=== PATIENT | male | born 1935 | race Caucasian/White ===

== ENCOUNTER 2019-07-05 16:04 | Emergency (ER) | payer OTHER ==
[2019-07-05 16:18] LABS: ABSOLUTE NEUTROPHIL COUNT 24.28; BASO % 0.1 % (0-6); HEMATOCRIT 43.1 % (42.0-52.0); HEMOGLOBIN 13.6 gm/dl (14.0-18.0); LYMPH % 4.7 % (16-45); MEAN CORPUSCULAR HGB CONC 31.6 g/dl (32-36); MEAN PLATELET VOLUME 9.7 fl (7.4-10.4); MONO % 9.4 % (0-9); PLATELET COUNT 561 K/uL (130-400); RED BLOOD COUNT 4.84 M/uL (4.40-5.70); RED CELL DISTRIBUTION WIDTH 15.4 % (11.5-14.5)
--- NOTE | 2019-07-05 16:22 | Emergency Department Record ---
History of Present Illness - General Chief Complaint: Fall Injury Stated Complaint: FELL 10-12 FT ON HEAD Time Seen by Provider: 07/05/19 16:07 Source: Patient, Family Mode of Arrival: Stretcher Limitations: Altered mental status - History of Present Illness Initial Comments: The patient is here after being brought here by his son in the front seat of the car after falling 10-12 feet off a ladder onto his head. The son feels the patient may have been lying outside on the concrete for up to 3 hours. Presently the patient has blood all over his head and was moved from the car onto a stretcher with a C-collar in place. He is awake and only complaining of head and neck pain. There has been no reported vomiting or any CP or SOB. The patient has no significant medical issues and may only take an ASA daily. He does not smoke and has not seen a doctor in years. MD Complaint: Fall Onset/Timin -: Hour(s) - Related Data Allergies Allergy/AdvReac Type Severity Reaction Status Date / Time No Known Drug Allergies Allergy Verified 07/05/19 17:15 Review of Systems Constitutional: Denies: Chills, Fever Eyes: Denies: Eye discharge ENT: Denies: Congestion Respiratory: Denies: Cough, Dyspnea Cardiovascular: Denies: Arrhythmia Endocrine: Denies: Fatigue Gastrointestinal: Denies: Nausea Genitourinary: Denies: Dysuria Musculoskeletal: Denies: Arthralgia Skin: Reports: Bruising Neurological: Reports: Headache Past Medical History - SOCIAL HISTORY Smoking Status: Never smoker - RESPIRATORY Hx Respiratory Disorders: No Hx COPD: No - CARDIOVASCULAR Hx Cardio Disorders: No Physical Exam - General General Appearance: Alert, Cooperative, No acute distress, Mild distress - Head Head exam: negative: Atraumatic, Normocephalic, Normal inspection (There is a 3 cm lac to the R forehead area with significant swelling and edema. The R eye is closed shut. The L eye is reactive.) Head exam detail: Hematoma (R eye.), [place] eyes (R eye only.) - Eye Eye exam: PERRL (L only.), Periorbital swelling (R only.), Periorbital tenderness. negative: Normal appearance - ENT ENT exam: negative: Normal exam - Neck Neck exam: Tenderness. negative: Normal inspection - Respiratory Respiratory exam: Normal lung sounds bilaterally. negative: Chest wall tenderness, Respiratory distress - Cardiovascular Cardiovascular Exam: Regular rate, Normal rhythm, Normal heart sounds - GI/Abdominal GI/Abdominal exam: Soft, Normal bowel sounds. negative: Tenderness - Extremities Extremities exam: Normal inspection, Full ROM, Normal capillary refill. negative: Tenderness - Back Back exam: Reports: Normal inspection. Denies: Vertebral tenderness - Neurological Neurological exam: Abnormal gait, Alert (The patient is speaking spontaneously and answering questions. ), Motor sensory deficit (There does appear to be decreased strength to the R arm and hand > L arm and hand. His strength is 4/5 L>R. The patient is moving his legs better and spontaneously. He will wiggle his toes to commands.). negative: Normal gait - Skin Skin exam: negative: Rash Course - Reevaluation(s) Reevaluation #1: I did discuss the issues with the family and did discuss the need to transfer to Trauma. Procedure note: The R head lacs totalling 12 cms were cleansed, anesth. with 3 cc's Lido 1% with Epi. The wounds were closed with a total of 11 3.0 Prolene sutures. There were no complications. The inferior lac was very macerated and stellate and the posterior 4 cm's were not able to close. 07/05/19 17:22 Reevaluation #2: Due to the extent of the patient's injuries I did discuss the case with Dr. Chambers at [facility] who did recommend transfer to [facility] ED. I then did discuss the case with Dr.'s Cooper and Jamison in the ER and Trauma and the patient was accepted in transfer. 07/05/19 17:35 Medical Decision Making - Data Complexity MDM Data: Labs Ordered and/or Reviewed, X-Ray Ordered and/or Reviewed - Lab Data Result diagrams: 07/05/19 16:10 07/05/19 16:10 - Radiology Data Radiology results: Report reviewed (Head CT: Anterior R Temp Epidural Hem 10 mm depth. L post parietal intraparenchymal hemorrhage. Mult skull fx's. Cspine: Fx's of C7, T-1, and T-2. Neg cord impingement. Neg displaced fx's. Chest and Abd CT: R scapula fx and distal L radius fx.) Disposition Disposition: Transfer Clinical Impression: Epidural hemorrhage Qualifiers: Encounter type: initial encounter Loss of consciousness presence/duration: with LOC of 30 min or less Qualified Code(s): S06.4X1A - Epidural hemorrhage with loss of consciousness of 30 minutes or less, initial encounter Disposition: Acute Care Hospital Transfer Transfer To: [facility] ER Reason For Transfer: Trauma and Neurosurg. Accepting Physician: Allison Time Discussed w/Accepting Physician: 17:37 Condition: (2) Stable Forms: Patient Portal Access Time of Disposition: 17:37 Quality - Quality Measures Quality Measures: Blunt Head Trauma (>2yr) - Blunt Head Trauma - Adult Quality Measure: Measure #415: Utilization of CT for Minor Blunt Head Trauma ICD10 Codes Entered: Yes View Details: Yes Was CT ordered: Yes Does Patient Have Any of the Following: Taking Antiplatelet Med Morganza Score: Please complete Forrest Coma Scale above Utilization of CT for Minor Blunt Head Trauma: Patient Excluded [G9531] - Blood Pressure Screening View Details: Yes Does Patient Have Any of the Following: No Blood Pressure Classification: Hypertensive Reading Systolic Measurement: 184 Diastolic Measurement: 98 Screening for High Blood Pressure: < First Hypertensive BP, F/U Documented > [G8950] First Hypertensive Follow-up Interventions: Referral to alternative/primary care provider.
[2019-07-05 16:28] LABS: WHITE BLOOD COUNT W/O DIFF 28.3 K/uL (4.2-12.2)
[2019-07-05 16:30] LABS: BLOOD UREA NITROGEN 16 mg/dL (8-23); CREATININE 0.9 mg/dL (0.7-1.2); EST GLOMERULAR FILTRATION RATE > 60 mL/min
[2019-07-05] MEDS ORDERED: LIDOCAINE UROJECT 10 ML APPL MM ONE (16:32)
[2019-07-05 16:33] LABS: GLUCOSE,RANDOM 269 mg/dL (74-109)
[2019-07-05 16:36] LABS: CREATINE PHOSPHOKINASE 425 U/L (39-308)
[2019-07-05 16:49] LABS: URINE APPEARANCE CLOUDY; URINE BILIRUBIN NEGATIVE (NEGATIVE); URINE BLOOD MODERATE (NEGATIVE); URINE COLOR YELLOW; URINE KETONE NEGATIVE (NEGATIVE); URINE LEUKOCYTE ESTERASE SMALL (NEGATIVE); URINE NITRITE NEGATIVE (NEGATIVE); URINE PROTEIN TRACE (NEGATIVE); URINE UROBILINOGEN 0.2 E.U./dL (0.20 - 1.00)
[2019-07-05 16:50] LABS: ANISOCYTOSIS 1+; PLATELET ESTIMATE INCREASED (NORMAL)
[2019-07-05 16:52] LABS: BARBITURATE SCREEN URINE NOT DETECTED; BENZODIAZEPINE SCREEN URINE NOT DETECTED; METHADONE SCREEN URINE NOT DETECTED; TRICYCLIC ANTIDEPRESSANT SCRN NOT DETECTED
[2019-07-05 16:53] LABS: AMPHETAMINE SCREEN URINE NOT DETECTED; COCAINE SCREEN URINE NOT DETECTED; METHAMPHETAMINE SCREEN NOT DETECTED; OPIATE SCREEN URINE NOT DETECTED; OXYCODONE SCREEN URINE NOT DETECTED; PHENCYCLIDINE SCREEN URINE NOT DETECTED; PROPOXYPHENE SCREEN URINE NOT DETECTED; THC SCREEN URINE NOT DETECTED
[2019-07-05 17:01] LABS: URINE BACTERIA 4+
[2019-07-05] MEDS ORDERED: Diph,Pert(Acell),Tet Vac 0.5 ML SYR IM ONE (17:06)
[2019-07-05] MEDS ORDERED: CEFTRIAXONE 1GM/50ML BAG 1 GM/50 ML BAG IVPB ONE (17:12)
[2019-07-05 17:13] LABS: ABO GROUP A; ANTIBODY SCREEN NEGATIVE (NEGATIVE); INR 1.2; PARTIAL THROMBOPLASTIN TIME 29.8 SECONDS (24.5-39.1); PROTHROMBIN TIME (PATIENT) 12.2 SECONDS (9.5-12.1); RH TYPE POSITIVE
--- NOTE | 2019-07-05 17:30 | CT SCAN REPORT ---
EXAMINATION: CHEST/ABD/PEL WO CONTRAST EXAM DATE: 07/05/2019 4:44 PM TECHNIQUE: Routine CT images of the chest, abdomen, and pelvis were obtained without contrast. INDICATION: trauma COMPARISON: None ENCOUNTER: Initial FINDINGS: CT Chest: The heart is not enlarged. No pericardial effusion. There is mild ectasia of the ascending aorta venancio uring 4.3 x 4.3 cm at the level of the right main pulmonary artery. Mild aortic atherosclerosis. No m ediastinal or hilar lymph node enlargement. There is fluid within the esophagus probably reflecting g astroesophageal reflux. Lungs demonstrate mild bibasilar atelectasis. No focal consolidation, pleural effusion, or pneumothor ax. Chest wall soft tissues are unremarkable. There appears be an acute fracture involving the inferior r ight scapula. There appears be an old sternal fracture bilateral rib fractures. Left mid clavicular f racture appears to be chronic though correlate with point tenderness. There are numerous bridging ost eophytes within the cervical and thoracic spine. There is a lucency through a bridging osteophyte and extending into the anteroinferior C7 vertebral body on the left suspicious for an acute fracture. CT abdomen and pelvis: Suggestion of cholelithiasis. Liver, pancreas, granulomatous spleen, and adrenals are unremarkable. R ight kidney is unremarkable. There is an exophytic fluid attenuation cyst lower pole left kidney venancio uring approximately 5 cm. There is colonic diverticulosis without CT evidence for diverticulitis. Appendix is a normal noncontr ast appearance. The bladder is distended. There is marked enlargement of the prostate gland measuring approximately 9.9 x 9.6 x 9.4 cm. There is mild aortic atherosclerosis. No abdominal or pelvic lymphadenopathy. Small fat-containing le ft inguinal hernia. No acute osseous abnormality is seen. There are moderate scattered degenerative changes. Other: There appears to be a intra-articular left distal radial fracture. IMPRESSION: 1. There appear to be acute fractures involving the inferior right scapula and distal left radius. T here is a lucency within the anteroinferior aspect of the left C7 vertebral body where there is a pro minent bridging osteophyte. This could relate to an acute fracture as well. Chronic appearing left mi d clavicular fracture though correlate with point tenderness. Other chronic fractures are present els ewhere including the sternum and multiple bilateral ribs. 2. Mild ectasia of the ascending aorta. 3. Marked enlargement of the prostate gland measuring 9.9 x 9.6 x 9.4 cm. This causes a bladder outle t obstruction. 4. Cholelithiasis. 5. Diverticulosis. 6. Probable gastroesophageal reflux. 7. Sizable fluid attenuation cyst lower pole left kidney. 8. Other chronic findings as above. Dictated by: Ji Colby MD on 07/05/2019 5:05 PM. .
--- NOTE | 2019-07-05 17:36 | CT SCAN REPORT ---
EXAMINATION: CT of the head without contrast, CT of the cervical spine contrast EXAM DATE: 07/05/2019 4:40 PM TECHNIQUE: Routine CT the head was obtained without contrast. Routine CT the cervical spine was obtained without contrast. INDICATION: trauma. ENCOUNTER: Initial COMPARISON: Concurrent CT the chest FINDINGS: CT Head: An extra-axial hematoma, likely epidural, in the anterior right middle cranial fossa measures 12 mm i n depth. Small foci of intraparenchymal hemorrhage are demonstrated in the posterior left temporal lobe with t he largest measuring 10 mm in diameter. Adjacent parenchymal edema. No evidence of acute infarct or mass. Mild periventricular white matter hypoattenuation noted consistent with chronic microvascular ischemi c disease. Chronic lacunar infarct in the right basal ganglia. The ventricles, sulci, and subarachnoid spaces are otherwise unremarkable. No hydrocephalus or midlin e shift. A transverse right temporal bone fracture is demonstrated (2:51). There is hemorrhage in the right ma stoid air cells and middle ear cavity. The left mastoid air cells and middle ear cavity appear intact . Multiple right facial fractures are demonstrated. A mildly displaced zygomatic arch fracture is prese nt (2:53) with 3 mm of displacement. Fractures of the anterior and lateral wall of the right maxillar y sinus are demonstrated. Hemorrhage is present within the right maxillary sinus. Associated nondisplaced fractures of the right lateral orbital wall and orbital floor are noted. Mini mal right extraconal orbital hemorrhage and foci of gas are noted. Extensive preseptal periorbital sw elling extending into the right frontal scalp with laceration and into the subcutaneous fat of the ch teller. Fractures of the squamous portion of the right temporal bone extending into the right frontal bone ar e not depressed. A nondisplaced skull base fracture involving the clivus with extension into the left carotid canal is demonstrated (2:55). This extends inferiorly into the left occipital bone and occipital condyle (602 :60). A few associated foci of pneumocephalus are present. Cervical spine: Nondisplaced fracture extending into the left occipital condyle as noted above. A fracture of the left inferior articular process of C7 and the superior articular process of T1 are noted (701:25). No perched or jumped facet. Fracture extends through the anterior inferior corner of C7 and its adjacent osteophyte; the discontinuity extends into the osteophytes anterior to the T1 and T2 vertebral bodies. Mild T2 and T3 vertebral body height loss suspected to be chronic. Extensive degenerative changes of the cervical spine. Moderate posterior disc osteophyte complexes fr om the C2-3 to the C5-6 level at least moderately narrow the central canal. Moderate to severe neural foraminal stenosis at these levels due to extensive uncovertebral hypertrophy and facet arthropathy. Partial osseous fusion of the C2 and C3 vertebra appears degenerative. IMPRESSION: 1. Epidural hematoma in the anterior right middle cranial fossa measuring 10 mm in depth 2. Small foci of intraparenchymal hemorrhage with adjacent edema in the posterior left temporal lobe , the largest measuring 10 mm in diameter 3. Right temporal bone fracture with hemorrhage in the mastoid air cells and middle ear cavity 4. Skull base fracture appears nondisplaced, involving the clivus and extending into the left caroti d canal and left occipital bone and occipital condyle. Foci of pneumocephalus. 5. Right zygomaticomaxillary complex fracture including the right orbit, right maxillary sinus, and right zygomatic arch. Minimal extraconal hematoma and foci of gas 6. Right calvarial nondepressed fracture 7. Cervical fractures are age-indeterminate, including the left inferior articular process of C7 and the superior articular process of T1 without perched facet. Fractures of the anterior osteophytes at the C7, T1, T2 levels with minimal involvement of the anterior inferior corner of C7. 8. Chronic-appearing mild height loss of the T2 and T3 vertebral bodies 9. CT the facial bones and CT angiogram are advised A Red Critical Result was communicated to Dr. Bean Starkey at 07/05/2019 5 PM. Dictated by: JESSICA REBOLLEDO MD on 07/05/2019 5:07 PM. .
== END 2019-07-05 18:10 | disposition short-term general hospital (02) ==
LOC: ER 16:04
DX: S06.4X1A Epidural hemorrhage with loss of consciousness of 30 minutes or less, initial encounter (principal); S01.81XA Laceration without foreign body of other part of head, initial encounter; S42.191A Fracture of other part of scapula, right shoulder, initial encounter for closed fracture; S52.502A Unspecified fracture of the lower end of left radius, initial encounter for closed fracture; W11.XXXA Fall on and from ladder, initial encounter
CPT/HCPCS: 12015; 70450; 71250; 72125; 74176; 80048; 80305; 80320; 81001; 82550; 85027; 85610; 85730; 86850; 86900; 86901; 90715; 93005; 93010; 96365; 96372; 99285; J0696